=== PATIENT | male | born 1975 | race Caucasian/White ===

== ENCOUNTER 2016-06-25 09:08 | Emergency (ER) | payer BC ==
[~2016-06-25] VITALS: Ht 177.8 cm; Wt 93.0 kg
[2016-06-25] MEDS ORDERED: ZYRTEC10 MG PO (09:18)
== END 2016-06-25 10:11 | disposition home or self-care (01) ==
LOC: ED 09:08
DX: S09.90XA Unspecified injury of head, initial encounter (principal); R05 Cough; M54.2 Cervicalgia; X58.XXXA Exposure to other specified factors, initial encounter; Y93.89 Activity, other specified; Y92.89 Other specified places as the place of occurrence of the external cause; Y99.9 Unspecified external cause status